=== PATIENT | female | born 2000 | race Hispanic/Latino ===

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

== ENCOUNTER 2024-02-14 13:44 | Emergency (ER) | payer SELFPAY ==
[~2024-02-14 13:44] MED LIST: Iopamidol 370 76% 100 ML VIAL ONE
[2024-02-14 14:16] LABS: Bilirubin Negative (Negative); Blood, Urine Small (Negative); Glucose, Urine (Dipstick) Negative (Negative); Ketone, Urine Negative (Negative); Leukocyte Moderate (Negative); Nitrite Negative (Negative); Protein, Urine (Dipstick) 30 mg/dL (Neg-Trace); Specific Gravity, Urine 1.015 (1.005-1.030); Urobilinogen 0.2 mg/dL (Less than 2); pH, Urine 6.5 (5.0-9.0)
[2024-02-14 14:17] LABS: Clarity Hazy (Clear); Pregnancy Test - Urine (BHCG) Negative (Negative)
[2024-02-14 14:18] LABS: Pregu Control Background? CLEAR/WHITE (CLR/WHITE); Pregu Control Bar Appear? YES (CONTROL BAR); Specific Gravity 1.015 (1.002-1.036)
[2024-02-14 14:29] LABS: Bacteria/HPF Rare-Few HPF (None Seen); CAUTI Indications for Culture Pelvic or flank pain; Mucous/LPF Few LPF (<2+); WBC/HPF 21-50 HPF (0-3)
[2024-02-14 14:30] LABS: Urine Culture Reflex Yes Yes
[2024-02-14] MEDS ORDERED: Ondansetron PF 4 MG/2 ML Vial ONE (14:42)
[2024-02-14] MEDS ORDERED: Dicyclomine 20 MG/2 ML VIAL ONE (14:42)
[2024-02-14] MEDS ORDERED: Ketorolac Tromethamine 30 MG (1 mL) VIAL ONE (14:42)
[2024-02-14] MEDS ORDERED: Lactated Ringer's 1,000 ML ONE (14:42)
[2024-02-14 15:08] LABS: #Basophils 0.1 thou/uL (0.0-0.2); #Eosinphils 0.1 thou/uL (0.0-0.7); #Lymphocytes 1.6 thou/uL (1.20-3.40); #Monocytes 0.4 thou/uL (0.11-0.59); #Neutrophils 5.9 thou/uL (1.40-6.50); %Basophils 0.8 % (0.0-1.0); %Lymphocytes 19.8 % (21.0-51.0); %Neutrophils 73.4 % (42.0-75.0); Hematocrit 44.7 % (36.0-47.0); Hemoglobin 14.2 g/dL (12.0-16.0); Mean Corpuscular HGB CONC 31.8 g/dL (32.0-36.0); Mean Corpuscular Hemoglobin 28.3 pg (27.0-31.0); Mean Corpuscular Volume 89.1 fl (78.0-98.0); Mean Platelet Volume 8.5 fL (7.4-10.4); Platelet Count 181 10x3/uL (130-400); RBC Distribution Width 11.9 % (11.5-14.5); Red Blood Cell (RBC) Count 5.01 mill/uL (4.20-5.40); White Blood Cell (WBC) Count 8.1 10x3/uL (4.8-10.8)
[2024-02-14 15:25] LABS: ALT (SGPT) 13 U/L (8-55); AST (SGOT) 15 U/L (5-34); Albumin 4.5 g/dL (3.5-5.0); Alkaline Phosphatase 91 U/L (40-110); Anion Gap 15 mmol/L (10-20); BUN (Urea Nitrogen) 8 mg/dL (7.0-18.7); Bilirubin, Total 0.8 mg/dL (0.2-1.2); Calc. Creatinine Clearance 0 mL/min (70-130); Calcium 9.2 mg/dL (7.8-10.44); Carbon Dioxide 21 mmol/L (22-29); Chloride 106 mmol/L (98-107); Estimated GFR 129; Globulin 2.7 g/dL (2.4-3.5); Glucose 98 mg/dL (70-105); Lipase 18 U/L (8-78); Potassium 3.8 mmol/L (3.5-5.1); Protein, Total 7.2 g/dL (6.0-8.3); Sodium 138 mmol/L (136-145)
[2024-02-14] MEDS ORDERED: cefTRIAXone (ROCEPHIN) 2 GM VIAL ONE (15:47)
[2024-02-14] MEDS ORDERED: Sodium Chloride 0.9% 100 ML ONE (15:47)
== END 2024-02-14 16:21 | disposition home or self-care (01) ==
LOC: MADERS 13:44
DX: N39.0 Urinary tract infection, site not specified (principal)
CPT/HCPCS: 74177; 80053; 81001; 81025; 83690; 85025; 86140; 87077; 87086; 87186; 94760; 96361; 96365; 96372; 96375; J0696; J1885; J2405; J3490; J7120; Q9967

== ENCOUNTER 2024-10-16 02:08 | Emergency (ER) | payer OTHER, SELFPAY ==
[2024-10-16 02:33] LABS: Bilirubin Negative (Negative); Blood, Urine Trace (Negative); Clarity Clear (Clear); Glucose, Urine (Dipstick) Negative (Negative); Ketone, Urine Negative (Negative); Leukocyte Negative (Negative); Nitrite Negative (Negative); Protein, Urine (Dipstick) Negative (Neg-Trace); Specific Gravity, Urine 1.025 (1.005-1.030); Urobilinogen 0.2 mg/dL (Less than 2)
[2024-10-16] MEDS ORDERED: Ondansetron ODT 4 MG TAB ONE (02:34)
[2024-10-16] MEDS ORDERED: Dicyclomine 20 MG/2 ML VIAL ONE (02:34)
[2024-10-16 02:36] LABS: CAUTI Indications for Culture Pelvic or flank pain; RBC/HPF 0-3 HPF (0-3); Squamous Epithelial 0-3 HPF (0-3); WBC/HPF None Seen HPF (0-3)
[2024-10-16 02:37] LABS: Urine Culture Reflex No No
[2024-10-16 02:43] LABS: Pregnancy Test - Urine (BHCG) Negative (Negative); Pregu Control Background? CLEAR/WHITE (CLR/WHITE); Pregu Control Bar Appear? YES (CONTROL BAR); Specific Gravity 1.025 (1.002-1.036)
== END 2024-10-16 03:25 | disposition home or self-care (01) ==
LOC: MADERS 02:08
DX: K50.90 Crohn's disease, unspecified, without complications (principal)
CPT/HCPCS: 81001; 81025; 96372; 99284; Q0162